=== PATIENT | female | born 1965 | race Caucasian/White ===

== ENCOUNTER 2020-06-18 11:47 | Observation (INO) | payer OTHER, MEDICAID, SELFPAY ==
[2020-06-18] VITALS (18 sets, daily range): BP systolic 123–170; BP diastolic 59–111; PULSE 92–115; RESP 16–24; TEMP 36.2–37.2; O2SAT 92–100; BMI 29.0
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
[2020-06-18 12:35] LABS: Add Manual Diff / Slide Review NO; Basophils Absolute Auto 100 /uL (0-100); Basophils Percent Auto 0.3 % (0-2); Eosinophils Absolute Auto 0 /uL (0-450); Hemoglobin 15.9 g/dL (12.0-16.0); Lymphocytes Absolute Auto 1800 /uL (1100-4500); Mean Corpuscular HGB Conc 33.7 % (30-36); Mean Corpuscular Hemoglobin 28.2 PG (26-34); Mean Corpuscular Volume 83.6 fL (80-100); Monocytes Absolute Auto 1100 /uL (0-900); Monocytes Percent Auto 6.8 % (3-14); Neutrophils Absolute Auto 13400 /uL (1500-7000); Neutrophils Percent Auto 81.9 % (50-75); Platelet Count 220 X10^3/uL (150-400); Red Blood Cell Count 5.62 X10^6/uL (4.0-5.2); White Blood Cell Count 16.4 X10^3/uL (4.5-11.0)
--- NOTE | 2020-06-18 12:35 | DI.CT.S_ITS ---
PROCEDURE: CT HEAD/BRAIN WO CON INDICATIONS: confusion TECHNIQUE: Noncontrast 4.5 mm thick angled axial sections acquired from the foramen magnum to the vertex, with coronal and sagittal reformats. For radiation dose reduction, the following was used: automated exposure control, adjustment of mA and/or kV according to patient size. COMPARISON: None. FINDINGS: Image quality: Excellent. CSF spaces: Basal cisterns are patent. No extra-axial fluid collections. Ventricles are normal in size and shape. Brain: No midline shift. No intracranial masses or hemorrhage. [place]-white matter interface is normal. Skull and face: Calvarium and visualized facial bones are intact, without suspicious lesions. Sinuses: Visualized sinuses and mastoids are clear. IMPRESSION: No acute process. Dictated by: Nichol Marrero M.D. on 06/18/2020 at 12:39 Approved by: Nichol Marrero M.D. on 06/18/2020 at 12:41
[2020-06-18 12:50] LABS: Acetaminophen < 10 ug/mL (10-30); Alanine Aminotransferase 48 IU/L (<35); Albumin 4.6 g/dL (3.5-5.0); Albumin Globulin Ratio 1.4 (1.0-2.8); Alkaline Phosphatase 88 U/L (38-126); Aspartate Aminotransferase 119 IU/L (14-36); BUN Creatinine Ratio 16.7 (6-22); Bilirubin Total 0.7 mg/dL (0.2-1.3); Blood Urea Nitrogen 10 mg/dL (7-17); Calcium 8.9 mg/dL (8.4-10.2); Carbon Dioxide 31 mmol/L (22-32); Chloride 105 mmol/L (98-107); Estimated Glomerular Filt Rate > 60.0 mL/min (>60); Ethanol (ETOH) 240 mg/dL; Globulin 3.2 g/dL (1.7-4.1); Glucose 134 mg/dL (70-100); HEMOLYSIS 26 (0-50); Potassium 4.2 mmol/L (3.4-5.1); Salicylate < 1.0 mg/dL (<20); Sodium 146 mmol/L (137-145); Total Protein 7.8 g/dL (6.3-8.2)
[2020-06-18 13:01] LABS: Troponin I 0.036 ng/mL (0.01-0.034)
[2020-06-18 13:12] LABS: Creatine Kinase 9782 U/L (30-135)
--- NOTE | 2020-06-18 13:15 | DI.RAD.S_ITS ---
PROCEDURE: XR CHEST 1V INDICATIONS: Chest pain TECHNIQUE: One view of the chest was acquired. COMPARISON: None. FINDINGS: Surgical changes and devices: None. Lungs and pleura: Lungs are clear. No pleural effusions or pneumothorax. Mediastinum: Mediastinal contours appear normal. Heart size is normal. Bones and chest wall: No suspicious bony lesions. Overlying soft tissues appear unremarkable. IMPRESSION: No acute finding. Dictated by: Juan Daniel Garcia M.D. on 06/18/2020 at 14:53 Approved by: Juan Daniel Garcia M.D. on 06/18/2020 at 14:53
[2020-06-18 13:20] LABS: CKMB % Relative Index 0.2 % (1.5-5.0)
[2020-06-18] MEDS: SODIUM CHLORIDE 0.9% 1,000 ML 1000 ML IV (13:22)
[2020-06-18 13:30] LABS: Thyroid Stimulating Hormone 0.677 uIU/mL (0.47-4.68)
[2020-06-18 13:41] LABS: COVID19 -Nasal RAPID Negative (Negative)
[2020-06-18] MEDS: KETOROLAC 60 MG/2 ML VIAL 30 MG IV (13:56)
[2020-06-18] MEDS: LORazepam 2 MG/ML INJ 0.5 MG IV (13:56)
[2020-06-18 14:21] LABS: Bilirubin Urine UA NEGATIVE (NEGATIVE); Color Urine UA YELLOW; Glucose Urine UA NEGATIVE (Negative); Ketones Urine UA NEGATIVE (NEGATIVE); Leukocyte Esterase Urine UA 2+ (NEGATIVE); Nitrite Urine UA NEGATIVE (Negative); Occult Blood Urine UA 3+ (Negative); Protein Urine UA TRACE (Negative); Urobilinogen Urine UA 0.2 E.U./dL (0.2)
[2020-06-18 14:23] LABS: Appearance Urine UA Slightly Cloudy; pH Urine UA 6.5 (4.5-8.0)
[2020-06-18 14:27] LABS: Ur Creatinine Normal (Normal); Ur Specific Gravity Normal (Normal); Urine pH Normal (Normal)
[2020-06-18 14:28] LABS: UR Morphine/Opiate cutoff 300 Negative (Negative); Urine Amphetamines Negative (Negative); Urine Barbiturates Negative (Negative); Urine Benzodiazepines Negative (Negative); Urine Cocaine Negative (Negative); Urine MDMA Negative (Negative); Urine Methadone Negative (Negative); Urine Methamphetamines Negative (Negative); Urine Oxycodone Negative (Negative); Urine Phencyclidine Negative (Negative); Urine Tetrahydrocannabinol Negative (Negative); Urine Tricyclic Antidepressant Negative (Negative)
[2020-06-18 14:34] LABS: Bacteria Urine Occasional (0-1); Culture Indicated Urine Specimen Cultured; RBC Urine 1-5/HPF (0-5/HPF); Squamous Epithelial Cell Urine 1-5 /HPF (0-5/HPF); WBC Urine 1-5/HPF (0-5/HPF)
[2020-06-18] MEDS: SODIUM CHLORIDE 0.9% 1,000 ML 150 ML IV (16:51)
[2020-06-18] MEDS: ACETAMINOPHEN 325 MG TABLET 650 MG PO (16:52)
[2020-06-18] MEDS: LORazepam 2 MG/ML INJ (17:20)
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
[2020-06-18] MEDS: chlordiazePOXIDE 25 MG CAPSULE PO ×2 (18:27→21:34)
[2020-06-18] MEDS: ONDANSETRON 4 MG/2 ML INJ IV (18:46)
[2020-06-18] MEDS: CEFTRIAXONE 1 GM/50 ML FROZ.PIGGY IV (18:46)
[2020-06-18] MEDS: LORazepam 2 MG/ML INJ IV (19:32)
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
--- NOTE | 2020-06-18 22:19 | P.EN_ITS ---
Event Note Event Note: Advised of a blood pressure of 147/105 and a heart rate of 113. Patient told nurse she takes lisinopril 30 mg daily, but am unable to confirm in her med rec where she receives and rx for this. Her blood pressures and heart rates have been persistently high since she presented to the ED. Advised nursing with high CIWA scores that this is to be expected, but if she starts to approach the 150s- 160s, may consider giving a one time dose of a beta-rand. Would be concerned of lowering her blood pressure too much in the setting of requiring benzodiazapines to control withdrawal symptoms. Do not recommend starting maintenance blood pressure medications until she has completed withdrawal and is ready to discharge.
[2020-06-18] MEDS: LORazepam 1 MG TABLET PO (23:40)
[2020-06-19 00:10] VITALS: BP 139/92; PULSE 114; RESP 20
[2020-06-19] MEDS: ACETAMINOPHEN 325 MG TABLET 650 MG PO ×2 (00:22→08:51)
[2020-06-19] MEDS: SODIUM CHLORIDE 0.9% 1,000 ML 150 ML IV (01:20)
--- NOTE | 2020-06-19 02:21 | PC.NURSE ---
Addendum entered by Lay Hyatt R.N. 06/19/20 04:42: CIWA score of 6 earlier and patient requested Ativan so was told Ativan was to be given only if CIWA score was 8 or greater. Now stating she doesn't fucking care what the score is she wants the Ativan so she can sleep. Discussed with David SQUIRES, and order received for Hydroxyzine. Addendum entered by Lay Hyatt R.N. 06/19/20 03:27: Noted to have large area of erythema with dark red rashy spots on bilateral inner thighs and groin. David SQUIRES, informed and will come to see patient. Original Note: Initially seen and assessed at 2346 with CIWA of 11 and was medicated with Ativan after which CIWA score down to 7 and currently is asleep. Was oriented except to day of month and day of week. Complained of severe headache rating as 8/10 and was medicated with Tylenol. Breath sounds CTA with RA sat of 95%. HRR but tachy at 114 bpm and at 0000 telemetry reading was recorded as ST. BP initially elevated at 161/93 (evening RN reported TAVIA Hernandez had been made aware of previously elevated BP's) but after receiving Lorazepam BP improved at 139/92. Complained of mild nausea which also resolved with Ativan. BT present and abdomen is soft. Denied dysuria, frequency or urgency with urination. Able to move self in bed. Upper extremity tremors were noted but again resolved with Ativan. Gait not assessed at this time but evening RN reports patient needing SBA when out of bed. Seizure pads are in place due to hx of seizures with alcohol withdrawal. Noted scattered abrasions on bilateral LE, laceration and blistered areas on plantar surface of feet. Fall risk assessment is moderate and bed alarm is activated.
[2020-06-19 03:33] VITALS: BP 162/93; PULSE 105; RESP 16; TEMP 36.6; O2SAT 97
--- NOTE | 2020-06-19 03:38 | PM.EVENT ---
Event Note Date Patient Seen: 06/19/20 Time Patient Seen: 03:38 Event Note: Patient complains of burning in her inner thighs. States she was wearing jeans, they got wet and now has a friction rash. She has erythematous areas in her bilateral medial thighs appearing to be worsened midway. She is written for zinc oxide for pain relief.
[2020-06-19] MEDS: ZINC OXIDE OINT 60 GM 1 APPLIC TOP (03:49)
[2020-06-19] MEDS: hydrOXYzine pamoate 25 MG CAPSULE PO (05:04)
[2020-06-19 06:38] LABS: Add Manual Diff / Slide Review NO; Basophils Absolute Auto 100 /uL (0-100); Basophils Percent Auto 0.6 % (0-2); Eosinophils Absolute Auto 0 /uL (0-450); Eosinophils Percent Auto 0.2 % (2-4); Hematocrit 41.8 % (36-46); Hemoglobin 14.3 g/dL (12.0-16.0); Lymphocytes Absolute Auto 1400 /uL (1100-4500); Lymphocytes Percent Auto 16.8 % (25-40); Mean Corpuscular HGB Conc 34.1 % (30-36); Mean Corpuscular Hemoglobin 28.7 PG (26-34); Mean Corpuscular Volume 84.2 fL (80-100); Monocytes Absolute Auto 700 /uL (0-900); Monocytes Percent Auto 8.7 % (3-14); Neutrophils Absolute Auto 6300 /uL (1500-7000); Neutrophils Percent Auto 73.7 % (50-75); Platelet Count 174 X10^3/uL (150-400); Red Blood Cell Count 4.97 X10^6/uL (4.0-5.2); Red Cell Distribution Width 13.4 % (11.6-14.8); White Blood Cell Count 8.5 X10^3/uL (4.5-11.0)
[2020-06-19] MEDS: chlordiazePOXIDE 25 MG CAPSULE PO (06:40)
[2020-06-19 06:45] LABS: Alanine Aminotransferase 42 IU/L (<35); Albumin Globulin Ratio 1.5 (1.0-2.8); Alkaline Phosphatase 82 U/L (38-126); Aspartate Aminotransferase 89 IU/L (14-36); Bilirubin Total 0.9 mg/dL (0.2-1.3); Bilirubin Unconjugated 0.8 mg/dL (0.0-1.1); Blood Urea Nitrogen 8 mg/dL (7-17); Calcium 8.4 mg/dL (8.4-10.2); Carbon Dioxide 27 mmol/L (22-32); Chloride 107 mmol/L (98-107); Estimated Glomerular Filt Rate > 60.0 mL/min (>60); Globulin 2.7 g/dL (1.7-4.1); Glucose 115 mg/dL (70-100); HEMOLYSIS < 15 (0-50); Magnesium 1.8 mg/dL (1.6-2.3); Sodium 139 mmol/L (137-145); Total Protein 6.7 g/dL (6.3-8.2)
[2020-06-19 06:58] LABS: Creatine Kinase 4810 U/L (30-135)
[2020-06-19 08:00] VITALS: BP 157/105; PULSE 114; RESP 15; TEMP 37.1; O2SAT 92
[2020-06-19] MEDS: FOLIC ACID 1 MG TABLET PO (08:46)
[2020-06-19] MEDS: ENOXAPARIN 40 MG/0.4 ML SYRINGE SUBCUT (08:46)
[2020-06-19] MEDS: THIAMINE 100 MG TABLET PO (08:46)
[2020-06-19] MEDS: MULTIVITAMIN 1 TABLET 1 TAB PO (08:46)
[2020-06-19] MEDS: LORazepam 1 MG TABLET PO ×2 (08:46→13:26)
[2020-06-19 10:07] VITALS: BP 136/76; PULSE 114; RESP 14
[2020-06-19] MEDS: lisinopriL 20 MG TABLET 30 MG PO (11:05)
[2020-06-19 11:43] VITALS: BP 174/101; PULSE 116; RESP 15; TEMP 37.4; O2SAT 97
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
[2020-06-19] MEDS: KETOROLAC 30 MG/ML VIAL IV (13:24)
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
[2020-06-19 14:31] VITALS: BP 147/83; PULSE 109; RESP 14
--- NOTE | 2020-06-19 16:19 | PC.NURSE ---
Addendum entered by Diane Jeffers R.N. 06/19/20 16:28: Per , patient did leave AMA since discharge was dc'd. Patient was adamant to leave hospital at this time. Original Note: Patient tried 2 times after 1530 to leave before discharge was ready and IV not removed. The third time patient did leave before any discharge instructions given and IV not removed. This RN was able to run after her before she got to [facility] [employer] Patient agreed to come to the ED entrance only to have IV removed and to sign the AMA paperwork.
--- NOTE | 2020-06-27 19:43 | PC.NURSE ---
Late Entry; Rocephine infusion initiated 06/18 at 18:46, complete 19:17.
== END 2020-06-19 16:10 | disposition home or self-care (01) ==
LOC: ED 14:17 → AC 14:47
PROVIDERS: Admitting Provider Internal Medicine; Emergency Provider Emergency Medicine; Referring Provider Emergency Medicine; Visit Provider Internal Medicine
DX: F10.239 Alcohol dependence with withdrawal, unspecified (principal); F10.229 Alcohol dependence with intoxication, unspecified; T51.0X1A Toxic effect of ethanol, accidental (unintentional), initial encounter; Y90.8 Blood alcohol level of 240 mg/100 ml or more; N30.00 Acute cystitis without hematuria; K70.10 Alcoholic hepatitis without ascites; M62.82 Rhabdomyolysis; E87.0 Hyperosmolality and hypernatremia; Z53.29 Procedure and treatment not carried out because of patient's decision for other reasons; F41.9 Anxiety disorder, unspecified; F17.210 Nicotine dependence, cigarettes, uncomplicated; Z11.59 Encounter for screening for other viral diseases
CPT/HCPCS: 36415; 70450; 71045; 80048; 80053; 80076; 80305; 80320; 80329; 81001; 82550; 82553; 82962; 83735; 84443; 84484; 85025; 87086; 87635; 93005; 93010; 96361; 96365; 96372; 96375; 96376; 99283; 99284; G0378; G0480; J1650; J1885; J2060; J2405

== ENCOUNTER 2020-06-19 16:41 | Emergency (ER) | payer OTHER, MEDICAID, SELFPAY ==
[2020-06-18 23:16] VITALS: BMI 29.0
[2020-06-19 16:55] VITALS: BP 167/90; PULSE 138; RESP 18; TEMP 36.8; O2SAT 96; BMI 27.4
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
[2020-06-19] MEDS: LORazepam 0.5 MG TABLET 2 MG PO (18:16)
[2020-06-19 18:20] VITALS: BP 154/88; PULSE 124; RESP 18; O2SAT 98
--- NOTE | 2020-06-19 18:20 | PC.NURSE ---
call placed to [facility]--no bed available for patient.
[2020-06-19] MEDS: LORazepam 0.5 MG TABLET 4 MG PO (18:35)
== END 2020-06-19 19:09 | disposition home or self-care (01) ==
PROVIDERS: Emergency Provider Emergency Medicine
DX: F10.10 Alcohol abuse, uncomplicated (principal); F43.0 Acute stress reaction
CPT/HCPCS: 99283